=== PATIENT | female | born 1940 | race Caucasian/White ===

== ENCOUNTER 2017-05-24 10:13 | Day surgery (SDC) | payer MEDICAID, OTHER ==
[~2017-05-24] VITALS: Ht 151.1 cm; Wt 60.5 kg
[~2017-05-24 10:13] MED LIST: ACET-784 PO; ALPR0.255 PO; BRIM15OS OD; IPRAHFA IH; LATA2.5D2 OU; MAAES30 PO; MOXIFLOXACIN HCL 0.5% 3 ML OPHTHALMIC SOLUTION ONE; PHENYLEPHRINE HCL 2.5% 2 ML OPHTHALMIC SOLUTION ONE; PROP1DRO4 OU; PROP20TA18 PO; RINGERS SOLUTION,LACTATED 500 ML IV ONE; TROPICAMIDE 1% 2 ML OPHTHALMIC SOLUTION ONE
[2017-05-24] MEDS ORDERED: DEXAMETHASONE SOD PHOS 4 MG/ML VIAL IVP ONE (10:14)
[2017-05-24] MEDS ORDERED: TETRACAINE HCL VISCOUS 0.5% 5 ML OPHTHALMIC SOLUTION OS ONE (10:14)
[2017-05-24] MEDS ORDERED: POVIDONE-IODINE 10% 15 ML SOLUTION UD TP ONE (10:14)
[2017-05-24] MEDS ORDERED: MIDAZOLAM HCL 2 MG/2 ML VIAL IVP ONE (10:14)
[2017-05-24] MEDS ORDERED: EPINEPHrine 1:1,000 [1 MG/ML] AMP SQ ONE (10:14)
[2017-05-24] MEDS ORDERED: BALANCED SALT 15 ML OPHTHALMIC IRRIG.SOLN OS ONE (10:14)
[2017-05-24] MEDS ORDERED: FentaNYL CITRATE-PF 100 MCG/2 ML VIAL IVP ONE (10:14)
[2017-05-24] MEDS ORDERED: LIDOCAINE HCL/PF 1% 2 ML VIAL IM ONE (10:14)
[2017-05-24] MEDS ORDERED: HYALURONATE SODIUM 12 MG/ML 0.8 ML SYRINGE IO ONE (10:14)
[2017-05-24] MEDS ORDERED: RINGERS SOLUTION,LACTATED 500 ML IV ONE ×2 (10:28→10:30)
[2017-05-24] MEDS ORDERED: PHENYLEPHRINE HCL 2.5% 2 ML OPHTHALMIC SOLUTION ONE (10:29)
[2017-05-24] MEDS ORDERED: MOXIFLOXACIN HCL 0.5% 3 ML OPHTHALMIC SOLUTION ONE (10:29)
[2017-05-24] MEDS ORDERED: DICLOFENAC SODIUM 0.1% 2.5 ML OPHTHALMIC SOLUTION OS ONE (10:30)
[2017-05-24] MEDS ORDERED: TROPICAMIDE 1% 2 ML OPHTHALMIC SOLUTION ONE (10:30)
[2017-05-24] MEDS ORDERED: MOXIFLOXACIN HCL 0.5% 3 ML OPHTHALMIC SOLUTION OS ONE (10:30)
[2017-05-24] MEDS: PHENYLEPHRINE HCL 2.5% 2 ML OPHTHALMIC SOLUTION OS SCH ×2 (11:17→11:23)
[2017-05-24] MEDS: TROPICAMIDE 1% 2 ML OPHTHALMIC SOLUTION OS SCH ×2 (11:17→11:23)
[2017-05-24 11:23] LABS: GLUCOMETER DEV NAME(LOC) SDS 5; GLUCOSE,POINT OF CARE 94 MG/DL (70-110)
== END 2017-05-24 13:05 | disposition home or self-care (01) ==
LOC: SURGERY 10:13
PROVIDERS: ATTEND Specialist
DX: H25.012 Cortical age-related cataract, left eye (principal); I10 Essential (primary) hypertension; M19.012 Primary osteoarthritis, left shoulder; I25.10 Atherosclerotic heart disease of native coronary artery without angina pectoris; I25.2 Old myocardial infarction; F43.10 Post-traumatic stress disorder, unspecified; M81.0 Age-related osteoporosis without current pathological fracture; F41.1 Generalized anxiety disorder; Z88.2 Allergy status to sulfonamides; Z88.1 Allergy status to other antibiotic agents; Z88.3 Allergy status to other anti-infective agents; Z88.8 Allergy status to other drugs, medicaments and biological substances; Z79.82 Long term (current) use of aspirin; Z88.6 Allergy status to analgesic agent; Z98.41 Cataract extraction status, right eye; Z90.89 Acquired absence of other organs; Z98.890 Other specified postprocedural states; Z91.018 Allergy to other foods; Z79.899 Other long term (current) drug therapy
CPT/HCPCS: 66984; 82962; 93005; C1780; J0171; J1100; J2250; J3010; J3490 ×2; J7120